=== PATIENT | male | born 1940 | race Caucasian/White ===

== ENCOUNTER 2019-10-17 22:10 | Inpatient (IN) | payer OTHER ==
[~2019-10-17] VITALS: Ht 213.4 cm; Wt 5.0 kg
[2019-10-17] MEDS ORDERED: ZESTORETIC 20-1 EAC1 PO (23:02)
[2019-10-17] MEDS ORDERED: SIMVASTATIN5 MG PO (23:02)
--- NOTE | 2019-10-17 23:02 | NUR ---
PACIENTE ALERTA Y DESORIENTADO EN TIEMPO Y LUGAR, CON HX DE ALZHEIMER, FAMILIAR REFIERE QUE LO TRAEN PORQUE NO RESPONDIA, NIEGAN TRAUMA. PACIENTE REFIERE "ME SIENTO NILA",
--- NOTE | 2019-10-17 23:41 | NUR ---
SE ORIENTA A PACIENTE SOBRE TRATAMIENTO. SE ANTONIO MUESTRAS DE LABORATORIO ORDENADAS. SE CANALIZA CON AREA DE VENOPUNCION ROSARIO DE EDEMA O ENROJECIMIENTO. SE ADMINISTRA IVF. SE MANTIENE EN OBSERVACION EN MADISON CON BARANDAS SEGURAS Y ELEVADAS.
--- NOTE | 2019-10-18 09:20 | NUR ---
SE RECIBE PTE DEL TURNO ANTERIOR, EN MADISON NIVEL MAS BAJO, MORELOS DE IDENTIFICACION Y BARANDAS ELEVADAS POR PRECAUCION, EN COMPANIA DE FAMILIAR. IV PATENTE Y ROSARIO DE EDEMA O ERITEMA CON 0.45% NACL @100ML/HR. PENDIENTE A CONSULTA CON DR Mariia SHAIKH.
[2019-10-22] MEDS ORDERED: ASA-EC81 MG PO (09:46)
== END 2019-10-22 10:47 | disposition home or self-care (01) | DRG 69 ==
LOC: ER 22:10 → EDSEX 22:10 → ER 22:52 → MEDI 10-18 15:11 → MEDJ 10-18 15:11 → SEC-K 10-18 15:11 → MEDI 10-18 19:33 → MEDJ 10-18 21:08
PROVIDERS: ADMIT Internal Medicine
PROC: B030ZZZ Magnetic Resonance Imaging (MRI) of Brain (ICD-10-PCS; principal; 2019-10-18)
PROC: B246ZZZ Ultrasonography of Right and Left Heart (ICD-10-PCS; 2019-10-19)
PROC: 4A12X4Z Monitoring of Cardiac Electrical Activity, External Approach (ICD-10-PCS; 2019-10-20)
DX: G45.8 Other transient cerebral ischemic attacks and related syndromes (principal); G40.209 Localization-related (focal) (partial) symptomatic epilepsy and epileptic syndromes with complex partial seizures, not intractable, without status epilepticus; G31.89 Other specified degenerative diseases of nervous system; E78.49 Other hyperlipidemia; G20 Parkinson's disease; G30.1 Alzheimer's disease with late onset; F02.80 Dementia in other diseases classified elsewhere, unspecified severity, without behavioral disturbance, psychotic disturbance, mood disturbance, and anxiety
CPT/HCPCS: 70551